=== PATIENT | female | born 1970 | race Caucasian/White ===

== ENCOUNTER → 2020-06-02 | Outpatient (CLI) | payer MEDICAID ==
--- NOTE | 2020-06-02 14:30 | ECHOS ---
STRESS ECHOCARDIOGRAM LUMASON: Vial INDICATIONS: Difficulty in breathing MEDICATIONS: Iron. BASELINE HEART RATE: 97 BASELINE BLOOD PRESSURE: 118/82 MAXIMUM HEART RATE: 167 MAXIMUM BLOOD PRESSURE: 150/68 85% MPHR: 146 100% MPHR: 122 METS: 7.1 MAXIMUM STAGE REACHED: 2 TOTAL EXERCISE TIME: 6:00 CLINICAL INFORMATION: Baseline EKG revealed normal sinus rhythm without significant ST-T changes. Patient walked on standard Shivam protocol for 6 minutes, achieved a maximal heart rate of 167 beats per minute, developed fatigue, shortness of breath but did not have angina or arrhythmia. EKG did not reveal any ST-segment changes to indicate ischemia. By EKG criteria, this is a negative stress test with limited exercise capacity. Baseline echo images revealed normal wall motion and wall thickening of all segments. At peak exercise, there was good augmentation of left ventricular wall motion and wall thickening of all segments suggesting that there is no evidence of stress-induced ischemia on this study. IMPRESSION: 1. Limited exercise capacity with a negative stress test by EKG criteria. 2. Normal stress echocardiogram without evidence of ischemia. MMODL / IJN: [id number] /
== END ==
LOC: RADNMMAIN 09:54
PROVIDERS: ATTEND Internal Medicine Geriatric Medicine
DX: R06.02 Shortness of breath (principal)
CPT/HCPCS: 93351

== ENCOUNTER → 2020-06-22 | Outpatient (CLI) | payer MEDICAID ==
[2020-06-22 08:01] LABS: Anisocytosis Moderate; HCT 26.6 % (34.0-46.0); HGB 7.3 gm/dL (11.4-16.0); Hypochromasia Marked; MCH 18.5 pg (25.0-35.0); MCHC 27.4 g/dL (31.0-37.0); MCV 67.4 fL (80.0-100.0); Mean Platelet Volume 6.7; Microcytosis Marked; Platelet Count 487 k/uL (150-450); RBC 3.95 m/uL (3.80-5.40); RDW 20.5 % (11.5-15.5); WBC 6.2 k/uL (3.8-10.6)
[2020-06-22 16:35] LABS: % Iron Saturation 1.64 (12.00-45.00); African American GFR (CKD) 124.9 (60.0-200.0); Albumin 4.1 g/dL (3.80-4.90); Albumin/Globulin Ratio 1.86 (1.60-3.17); Anion Gap 7.7 mmol/L (4.00-12.00); BUN/Creat Ratio 13.33 Ratio (12.00-20.00); Calcium 9.2 mg/dL (8.7-10.3); Carbon Dioxide 23.3 mmol/L (21.6-31.8); Ferritin 3.7 ng/mL (10.0-291.0); Globulin 2.2 g/dL (1.6-3.3); Non-African American GFR(CKD) 107.8 (60.0-200.0); Potassium 4.5 mmol/L (3.5-5.5); Total Bilirubin 0.3 mg/dL (0.2-1.2); Total Protein 6.3 g/dL (6.2-8.2)
== END | disposition home or self-care (01) ==
LOC: LABWHC1 07:09
PROVIDERS: ATTEND Nurse Practitioner Gerontology
DX: D64.9 Anemia, unspecified (principal)
CPT/HCPCS: 36415; 80053; 82728; 83540; 83550; 84443; 85027

== ENCOUNTER → 2020-07-28 | Outpatient (CLI) | payer MEDICAID ==
[2020-07-28 08:50] LABS: Anisocytosis Moderate; Basophils # (A) 0.1 k/uL (0-0.2); Basophils % (A) 1 %; Eosinophils # (A) 0.4 k/uL (0-0.7); Eosinophils % (A) 5 %; Hypochromasia Marked; Lymphocytes # (A) 1.8 k/uL (1.0-4.8); Lymphocytes % (A) 20 %; MCH 24.3 pg (25.0-35.0); MCHC 29.7 g/dL (31.0-37.0); Mean Platelet Volume 6.5; Microcytosis Moderate; Monocytes # (A) 0.4 k/uL (0-1.0); Monocytes % (A) 5 %; Neutrophils # (A) 5.8 k/uL (1.3-7.7); Neutrophils % (A) 68 %; Platelet Count 398 k/uL (150-450); RBC 4.77 m/uL (3.80-5.40); RDW 23.9 % (11.5-15.5); WBC 8.6 k/uL (3.8-10.6)
[2020-07-28 09:07] LABS: HGB 11.6 gm/dL (11.4-16.0); MCV 81.8 fL (80.0-100.0)
[2020-07-28 17:33] LABS: % Iron Saturation 4.41 (12.00-45.00)
[2020-07-28 17:38] LABS: Ferritin 26.4 ng/mL (10.0-291.0)
== END | disposition home or self-care (01) ==
LOC: LABWHC1 07:41
PROVIDERS: ATTEND Nurse Practitioner Gerontology
DX: D50.9 Iron deficiency anemia, unspecified (principal)
CPT/HCPCS: 36415; 82728; 83540; 83550; 85025

== ENCOUNTER → 2020-08-19 | Outpatient (CLI) | payer MEDICAID ==
[2020-08-19 09:19] LABS: Anisocytosis Moderate; Basophils # (A) 0.1 k/uL (0-0.2); Basophils % (A) 1 %; Eosinophils # (A) 0.3 k/uL (0-0.7); Eosinophils % (A) 4 %; HCT 35.1 % (34.0-46.0); Hypochromasia Moderate; Lymphocytes # (A) 1.5 k/uL (1.0-4.8); Lymphocytes % (A) 20 %; MCH 26.7 pg (25.0-35.0); MCHC 31.3 g/dL (31.0-37.0); MCV 85.3 fL (80.0-100.0); Mean Platelet Volume 6.6; Microcytosis Slight; Monocytes # (A) 0.4 k/uL (0-1.0); Monocytes % (A) 5 %; Neutrophils # (A) 5.2 k/uL (1.3-7.7); Neutrophils % (A) 70 %; Platelet Count 464 k/uL (150-450); RBC 4.11 m/uL (3.80-5.40); RDW 20.2 % (11.5-15.5); WBC 7.5 k/uL (3.8-10.6)
[2020-08-19 09:28] LABS: African American GFR (CKD) >90 (>60 ml/min/1.73 sqM); Anion Gap 9 mmol/L; Blood Urea Nitrogen 10 mg/dL (7-17); Carbon Dioxide 25 mmol/L (22-30); Chloride 104 mmol/L (98-107); Glucose 123 mg/dL (74-99); Non-African American GFR(CKD) >90 (>60 ml/min/1.73 sqM); Potassium 4.2 mmol/L (3.5-5.1); Sodium 138 mmol/L (137-145)
== END | disposition home or self-care (01) ==
LOC: LABPAT 07:57
PROVIDERS: ATTEND Obstetrics & Gynecology Obstetrics
DX: Z01.818 Encounter for other preprocedural examination (principal); D25.9 Leiomyoma of uterus, unspecified; D64.9 Anemia, unspecified; N92.1 Excessive and frequent menstruation with irregular cycle
CPT/HCPCS: 36415; 80051; 82565; 82947; 84520; 85025; 87086

== ENCOUNTER 2020-08-25 06:02 | Observation (INO) | payer MEDICAID ==
[2020-08-21 08:53] VITALS: BMI 31.4
--- NOTE | 2020-08-24 16:54 | P.HPOB ---
History of Present Illness H&P Date: 08/24/20 Chief Complaint: Heavy menstrual bleeding, uteirne fibroids, anemia This is a 49yo that presents with complaints of worsening periods, heavy in nature. she notes menses to be irregualr in nature with occasional spotting. she is sexually active at this time. she was recently dx with anemia also. US was done and notes enlarged uterus with fibroids. uterus was [id number], with 5 fibroids noted largest being 3 cm. no adnexal masses are appreciated. Review of Systems Constitutional: Denies chills, Denies fatigue, Denies fever, Denies lethargy Ears, nose, mouth and throat: Denies headache Cardiovascular: Denies edema Respiratory: Denies dyspnea Gastrointestinal: Denies constipation, Denies diarrhea, Denies nausea, Denies vomiting Menstruation: Reports cycle variable, Reports period heavy Past Medical History Additional Past Medical History / Comment(s): ANEMIA. UTERINE FIBROIDS History of Any Multi-Drug Resistant Organisms: None Reported Past Surgical History: No Surgical Hx Reported Past Anesthesia/Blood Transfusion Reactions: Family History of Problems w/ Anesthesia Additional Past Anesthesia/Blood Transfusion Reaction / Comment(s): MOM HAD SEIZURES AFTER GALLBLADDER SX IN 2008 Smoking Status: Former smoker - Past Family History Father Family Medical History: Cancer Mother Family Medical History: Cancer Medications and Allergies Home Medications Medication Instructions Recorded Confirmed Type Ferrous Sulfate [Feosol] 325 mg PO BID 08/21/20 08/21/20 History Allergies Allergy/AdvReac Type Severity Reaction Status Date / Time No Known Allergies Allergy Verified 08/21/20 08:48 Exam Osteopathic Statement: *. No significant issues noted on an osteopathic structural exam other than those noted in the History and Physical/Consult. targeted physical exam is preformed, in general this is a well developed well nourished female with in NAD, breathing is noted to be non labored, heart has a RRR, abdomen is soft and non tender, on vaginal exam external genitalia is normal for age, vaginal mucosa is pink and well rugated. cervix is noted to be dilated with fibroid prolapsing through the cervix. uterus is enlarged and irregular in nature, no adnexal masses are appreciated. no LE edema is noted. Assessment and Plan (1) Menorrhagia Status: Acute Code(s): N92.0 - EXCESSIVE AND FREQUENT MENSTRUATION WITH REGULAR CYCLE SNOMED Code(s): 286246787 (2) Anemia Status: Acute Code(s): D64.9 - ANEMIA, UNSPECIFIED SNOMED Code(s): 055358792 (3) Uterine fibroid Status: Acute Code(s): D25.9 - LEIOMYOMA OF UTERUS, UNSPECIFIED SNOMED Code(s): 83870640 Plan: will plan RAVH/DC/possible BSO. risks are reviewed in detail including but not limited to infection damage to badder bowel or ureteric injury. pt states understands and plans to proceed. all questions answered.
[~2020-08-25 06:02] MED LIST: ACETAMINOPHEN IV (For NPO) 1,000 MG in EMPTY BAG 1 BAG IVPB ONE
[2020-08-25] MEDS ORDERED: LIDOCAINE 1% (10MG/ML) FOR IV START INTRADERMA PRN (06:10)
[2020-08-25] MEDS ORDERED: MIDAZOLAM 2 MG/2 ML VIAL IV PRN (06:10)
[2020-08-25] MEDS ORDERED: DEXAMETHASONE SOD PHOSPHATE 10 MG/ML 1 ML VIAL IV ONE (06:10)
[2020-08-25] MEDS ORDERED: ONDANSETRON 4 MG/2 ML VIAL IVP ONE (06:10)
[2020-08-25 06:19] VITALS: RESP 16
[2020-08-25] MEDS: LACTATED RINGERS 1,000 ML IV SCH ×2 (06:43→14:30)
[2020-08-25] MEDS ORDERED: SCOPOLAMINE 1.5MG/72HR PATCH TRANSDERM ONE (06:43)
[2020-08-25] MEDS ORDERED: SUCCINYLCHOLINE CHLORIDE 100 MG/5 ML SYR IV ONE (07:35)
[2020-08-25] MEDS ORDERED: PHENYLEPHRINE-0.9% NACL SYG 1 MG/10 ML SYRINGE ONE (07:35)
[2020-08-25] MEDS ORDERED: ROCURONIUM 10 MG/ML (10 ML VIAL) IV ONE (07:35)
[2020-08-25] MEDS ORDERED: NEOSTIGMINE 1 MG/ML 10 ML VIAL ONE (07:35)
[2020-08-25] MEDS ORDERED: GLYCOPYRROLATE 0.2 MG/ML 2 ML VIAL ONE (07:35)
[2020-08-25] MEDS ORDERED: MIDAZOLAM 2 MG/2 ML VIAL ONE (07:35)
[2020-08-25] MEDS ORDERED: LIDOCAINE 1% INJ 10MG/ML (20 ML MDV) ONE (07:35)
[2020-08-25] MEDS ORDERED: fentaNYL (PF) 50 MCG/ML 2 ML AMP ONE (07:35)
[2020-08-25] MEDS ORDERED: PROPOFOL 10 MG/ML 20 ML VIAL IV ONE (07:35)
[2020-08-25] MEDS ORDERED: LACTATED RINGERS 1,000 ML IV ONE ×2 (07:50→08:55)
[2020-08-25] MEDS ORDERED: BUPIVACAINE (PF) 0.25% 30 ML VIAL SQ ONE ×2 (08:11→09:08)
[2020-08-25] MEDS ORDERED: ONDANSETRON 4 MG/2 ML VIAL IVP PRN (09:25)
[2020-08-25] MEDS ORDERED: SIMETHICONE 80 MG CHEWABLE PO PRN (09:25)
[2020-08-25] MEDS ORDERED: Acetaminophen-Codeine 300-30mg TAB PO PRN ×2 (09:25)
--- NOTE | 2020-08-25 09:37 | P.OP ---
Date of Procedure: 08/25/20 Preoperative Diagnosis: Uterine fibroids, menorrhagia, anemia Postoperative Diagnosis: Same plus prolapsing fibroid through the cervix Procedure(s) Performed: Robotic-assisted vaginal hysterotomy, bilateral salpingectomy, diagnostic cystoscopy, vaginal myomectomy Anesthesia: DESHAUN Surgeon: Eun Wade Invasive Physician #1: Lindsay Brown Estimated Blood Loss (ml): 5 IV fluids (ml): 1,100 Urine output (ml): 500 Pathology: other (Uterus, cervix, fallopian tubes, uterine fibroid) Condition: stable Disposition: PACU Indications for Procedure: Worsening menstrual cycles, prolapsing cervical fibroid, multiple uterine fibroids Operative Findings: 4 cm prolapsing fibroid through the cervix is noted, uterus is noted to be globular and enlarged, bilateral ovaries appear normal. Cystoscopy revealing normal bladder mucosa, both ureteral orifices spilling clear yellow urine at the end of the procedure. Description of Procedure: Patient was seen in the preoperative area and informed consent is obtained. All questions are answered. Patient is taken back to the operating suite where general anesthesia was obtained without difficulty by the anesthesia department. She is prepped and draped in the normal sterile fashion in the dorsal lithotomy position. A Dailey catheter was then placed. A weighted speculum was placed in the posterior vaginal vault the cervical/prolapsing fibroid is visualized. Single-tooth tenaculum is used to grasp the fibroid the stalk is identified and transected with a Vannessa clamp, heavy Aguilar scissors are used to transect the fibroid. A Vicryl is then used to tie off the pedicle. Hemostasis was appreciated. At this time a V care uterine manipulator was advanced into the uterus the cervix was placed within the cervical cap as it had been dilated previously secondary to a prolapsing fibroid. Air was placed in the balloon of the V care device. Attention was then turned to the patient's abdomen where approximately 3 fingerbreadths above the umbilicus small skin incision is made. Through this incision the Veress needles placed. Once the Veress needle deemed to be in appropriate position with a drop of CO2 pressure with insufflation of CO2 gas CO2 insufflation was allowed to occur. Approximately 3 L of gas were used to obtain pneumoperitoneum. At this time an 8 mm trocar with the laparoscope in place is placed through the skin incision and toward the pneumoperitoneum under direct visualization. The above-noted findings are visualized. At this time the additional port sites are placed 10 cm lateral and 3 cm inferior to midline port these are 8 mm ports and placed under direct visualization. In the left upper quadrant 12 mm trocar and sleeve is placed under direct visualization. At this time the da Itzel robot was docked in the usual fashion. The operative arms are placed in the right operative arm the monopolar scissors, in the left operative arm the bipolar forceps is placed. The left fallopian tube was grasped and mesosalpinx was coagulated and transected. This continued toward the uterine ovarian ligament which was visualized coagulated distally and proximally and divided. This continued toward the round which was coagulated distally and proximally and divided. The bladder flap from the left was then created using sharp and blunt dissection. The ascending branch the uterine artery was visualized coagulated and transected, hemostasis was appreciated. attention was then turned to the patient's opposite fallopian tube which was grasped coagulated and transected to the uterine ovarian ligament. The uterine ovarian ligament was visualized coagulated distally and proximally and divided. Hemostasis was appreciated throughout. The round ligament was then grasped c oagulated distally and proximally and divided. The bladder flap was then created using sharp and blunt dissection. The ascending branch of the uterine artery was visualized coagulated distally and proximally divided, hemostasis was appreciated. The bladder was noted to be far away from the operating field after slight blunt dissection with a Ray-Berlin. At this time the only remaining attachment was a vaginal attachment therefore a colpotomy incision was made in circumferential fashion. The uterus and bilateral fallopian tubes were delivered through the vaginal opening. Hemostasis was appreciated. The pelvis was then copiously irrigated and the vaginal cuff was found to be hemostatic. The vaginal cuff was then closed with 0 Vicryl, approximately 5 [id number] sutures were used to obtain closure. At this time all instruments removed from the patient's abdomen and the da Itzel was undocked. Attention turned the patient's Dailey catheter which was removed without difficulty. A cystoscope was performed. This cystoscope was placed through the urethra and toward the bladder bladder bubbles noted both ureteral orifices noted he spilling clear yellow urine. A cystoscopy fluid and cystoscope are removed. Dailey catheter was then replaced. Attention was then turned the patient's abdomen where the skin incisions were closed with 4-0 Vicryl in a septic or fashion, Steri-Strips and sterile dressings were applied. All counts are noted to be correct 2 at the end of the procedure. Patient tolerated procedure well and was taken to the recovery room awake in stable condition.
[2020-08-25] MEDS ORDERED: KETOROLAC 15 MG/ML 1 ML VIAL IVP ONE (09:51)
[2020-08-25] MEDS: HYDROmorphone 0.5 MG/0.5 ML SYRINGE IVP PRN ×2 (09:59→10:07)
[2020-08-25] MEDS: ACETAMINOPHEN TAB 325 MG TAB PO PRN ×3 (12:06→23:00)
[2020-08-25] MEDS: IBUPROFEN 600 MG TAB PO PRN ×2 (14:23→20:08)
--- NOTE | 2020-08-25 17:04 | P.PN ---
Subjective Progress Note Date: 08/25/20 Principal diagnosis: POD 0 RAVH DC, vaginal myomectomy This 49-year-old female is status post robotic cyst vaginal hysterotomy, cystoscopy with vaginal myomectomy. Patient is doing well postoperatively. Dailey catheter remains and is draining clear yellow urine. She states her pain is well-controlled with ibuprofen. She denies nausea or vomiting and is tolerating clear liquids. Objective - Vital Signs Vital signs: Vital Signs Temp 98 F 08/25/20 11:20 Pulse 77 08/25/20 13:07 Resp 16 08/25/20 13:07 BP 102/77 08/25/20 13:07 Pulse Ox 99 08/25/20 10:45 Intake & Output 08/24/20 08/25/20 08/25/20 18:59 06:59 18:59 Intake Total 200 1650 Output Total 955 Balance 200 695 Weight 79.2 kg 79.2 kg Intake: IV 200 1650 Output: Urine 950 Estimated Blood Loss 5 - Constitutional General appearance: Present: average body habitus, cooperative, no acute distress - EENT Eyes: Present: EOMI ENT: Present: NA/AT - Respiratory Details: Breathing is noted to be nonlabored - Gastrointestinal Gastrointestinal Comment(s): Soft nontender General gastrointestinal: Present: normal bowel sounds Assessment and Plan (1) Menorrhagia Current Visit: No Status: Acute Code(s): N92.0 - EXCESSIVE AND FREQUENT MENSTRUATION WITH REGULAR CYCLE SNOMED Code(s): 448511626 (2) Anemia Current Visit: No Status: Acute Code(s): D64.9 - ANEMIA, UNSPECIFIED SNOMED Code(s): 749541908 (3) Uterine fibroid Current Visit: No Status: Acute Code(s): D25.9 - LEIOMYOMA OF UTERUS, UNSPECIFIED SNOMED Code(s): 29677647 (4) S/P laparoscopic hysterectomy Current Visit: Yes Status: Acute Code(s): Z90.710 - ACQUIRED ABSENCE OF BOTH CERVIX AND UTERUS SNOMED Code(s): 323986729 Plan: Patient is doing well postoperatively, we will advance diet to regular for dinner. Anticipate discharge home in the morning.
[2020-08-25] MEDS: SENNOSIDES-DOCUSATE SODIUM 1 EACH TAB PO SCH (20:09)
[2020-08-26] MEDS: IBUPROFEN 600 MG TAB PO PRN (05:04)
--- NOTE | 2020-08-26 07:30 | P.DS ---
Providers Date of admission: 08/25/20 20:22 Expected date of discharge: 08/26/20 Attending physician: Eun Wade Primary care physician: Dayne Pagna - Discharge Diagnosis(es) (1) Menorrhagia Current Visit: No Status: Acute (2) Anemia Current Visit: No Status: Acute (3) Uterine fibroid Current Visit: No Status: Acute (4) S/P laparoscopic hysterectomy Current Visit: Yes Status: Acute Hospital Course: This is a 49-year-old female who presented the hospital yesterday for planned robotic cyst vaginal hysterotomy, diagnostic cystoscopy, possible bilateral sopping removed for ectomy. Patient had no history of uterine fibroids 1 prolapsing through the cervix, anemia secondary to heavy menstrual bleeding. Patient elected definitive therapy with hysterectomy. Patient underwent hysterectomy without difficulty, for further details on her hysterectomy please see the operative report. Patient's postoperative course has been uneventful. On this postop day #1 she is in bleeding and voiding without difficulty. She is tolerating a regular diet without nausea or vomiting. She states her pain is well-controlled with ibuprofen and Tylenol. She denies vaginal bleeding and is having some mild gas pain. Patient Condition at Discharge: Good Plan - Discharge Summary Discharge Rx Participant: No New Discharge Prescriptions: No Action Ferrous Sulfate [Feosol] 325 mg PO BID Discharge Medication List Ferrous Sulfate [Feosol] 325 mg PO BID 08/21/20 [History] Follow up Appointment(s)/Referral(s): Eun Wade DO [Doctor of Osteopathic Medicine] - 2 Weeks Patient Instructions/Handouts: Laparoscopic Hysterectomy (DC), Laparoscopic Hysterectomy (GEN) Activity/Diet/Wound Care/Special Instructions: no tub baths until 6 weeks post operative. no intercourse until 8 weeks post operative. Discharge Disposition: HOME SELF-CARE
[2020-08-26 08:19] LABS: Anisocytosis Slight; Basophils % (A) 0 %; Eosinophils % (A) 0 %; HGB 10.2 gm/dL (11.4-16.0); Hypochromasia Moderate; Lymphocytes # (A) 1.5 k/uL (1.0-4.8); Lymphocytes % (A) 13 %; MCH 27.1 pg (25.0-35.0); MCHC 30.9 g/dL (31.0-37.0); MCV 87.7 fL (80.0-100.0); Mean Platelet Volume 6.7; Microcytosis Slight; Monocytes # (A) 0.5 k/uL (0-1.0); Monocytes % (A) 5 %; Neutrophils # (A) 9.3 k/uL (1.3-7.7); Neutrophils % (A) 81 %; Platelet Count 356 k/uL (150-450); RBC 3.77 m/uL (3.80-5.40); RDW 19.5 % (11.5-15.5); WBC 11.5 k/uL (3.8-10.6)
[2020-08-26 08:24] VITALS: BP 117/78; PULSE 69; TEMP 98.3
[2020-08-26] MEDS: SENNOSIDES-DOCUSATE SODIUM 1 EACH TAB PO SCH (08:26)
[2020-08-26] MEDS: ACETAMINOPHEN TAB 325 MG TAB PO PRN (10:08)
== END 2020-08-26 10:20 | disposition home or self-care (01) ==
LOC: OR 06:02 → 4FBP 09:25 → OR 20:22
PROVIDERS: ADMIT Obstetrics & Gynecology Obstetrics; ATTEND Obstetrics & Gynecology Obstetrics
DX: N72 Inflammatory disease of cervix uteri (principal); N84.0 Polyp of corpus uteri; N92.0 Excessive and frequent menstruation with regular cycle; D26.0 Other benign neoplasm of cervix uteri; D64.9 Anemia, unspecified; Z87.891 Personal history of nicotine dependence
CPT/HCPCS: 58552; S2900; 81025; 85025; 86850; 86900; 86901; 88307

== ENCOUNTER → 2023-08-07 | Outpatient (CLI) | payer BC ==
--- NOTE | 2023-08-09 08:24 | MM ---
Reason for Exam: Screening (asymptomatic). Last mammogram was performed 7 year(s) and 9 month(s) ago. Patient History: Menarche at age 11. First Full-Term at age 19. Hysterectomy at age 49. Postmenopausal. Risk Values: Sadie 5 year model risk: 0.8%. NCI Lifetime model risk: 7.0%. Prior Study Comparison: 11/26/2015 Bilateral Screening Mammogram, [facility]. Tissue Density: The breast tissue is heterogeneously dense. This may lower the sensitivity of mammography. Findings: Analyzed By CAD. There is no suspicious group of microcalcifications or new suspicious mass. Overall Assessment: Negative, BI-RAD 1 Management: Screening Mammogram of both breasts in [address] [facility] will attempt to contact patient to return for supplemental views and ultrasound if indicated. Patient should continue monthly self-breast exams. A clinical breast exam by your physician is recommended on an annual basis. This exam should not preclude additional follow-up of suspicious palpable abnormalities. Note on Sadie scores and lifetime risk: 1. A Sadie score greater than 3% is considered moderate risk. If this is the case, consider specialist referral to assess eligibility for a risk reducing agent. 2. If overall lifetime risk for the development of breast cancer is 20% or higher, the patient may qualify for future screening with alternating mammogram and breast MRI. Electronically signed and approved by: Pa Romo DO
== END | disposition home or self-care (01) ==
LOC: RADMAMWWP 12:45
PROVIDERS: ATTEND Obstetrics & Gynecology Obstetrics
DX: Z12.31 Encounter for screening mammogram for malignant neoplasm of breast (principal); Z78.0 Asymptomatic menopausal state
CPT/HCPCS: 77063; 77067